=== PATIENT | female | born 1990 | race Caucasian/White ===

== ENCOUNTER 2017-06-04 16:26 | Emergency (ER) | payer MEDICAID ==
[~2017-06-04] VITALS: Ht 167.6 cm; Wt 63.6 kg
[~2017-06-04 16:26] MED LIST: BENZ1TAB10 PO; BUSP15 PO; DIVA500T35 PO; FERR-89 PO; HALO10 PO; LITH300C3 PO; PARO10TA89 PO
[2017-06-04 16:50] VITALS: BP 127/90
== END 2017-06-04 19:30 | disposition left against medical advice (07) ==
LOC: EMS 16:28
DX: Z53.21 Procedure and treatment not carried out due to patient leaving prior to being seen by health care provider (principal)

== ENCOUNTER 2021-07-16 17:03 | Emergency (ER) | payer MEDICAID, OTHER ==
[~2021-07-16] VITALS: Ht 160 cm; Wt 81.8 kg
[~2021-07-16 17:03] MED LIST changes: +DIVA-112 PO; -DIVA500T35 PO
[2021-07-16 18:57] VITALS: BP 104/67
[2021-07-16 19:01] LABS: GLUCOSE,POINT OF CARE 86 MG/DL (70-110)
== END 2021-07-16 21:24 | disposition home or self-care (01) ==
LOC: EMS 17:05
DX: R53.1 Weakness (principal); R42 Dizziness and giddiness; F41.9 Anxiety disorder, unspecified; J45.909 Unspecified asthma, uncomplicated; F31.9 Bipolar disorder, unspecified; I10 Essential (primary) hypertension; F17.210 Nicotine dependence, cigarettes, uncomplicated; F19.90 Other psychoactive substance use, unspecified, uncomplicated; Z88.5 Allergy status to narcotic agent; Z88.6 Allergy status to analgesic agent
CPT/HCPCS: 82962; 99283

== ENCOUNTER 2021-08-15 08:39 | Inpatient (IN) | payer MEDICAID, OTHER ==
[~2021-08-15] VITALS: Ht 162.6 cm; Wt 77.3 kg
[~2021-08-15 08:39] MED LIST changes: -BENZ1TAB10 PO; +BENZ1TAB96 PO
[2021-08-15 12:17] LABS: COVID AG,FIA SOURCE NASAL SWAB
[2021-08-15] MEDS ORDERED: DiphenhydrAMINE HCL 50 MG/ML VIAL IM ONE (12:45)
[2021-08-15] MEDS ORDERED: HALOPERIDOL LACTATE 5 MG/ML VIAL IM ONE (12:45)
[2021-08-15] MEDS ORDERED: LORazepam 2 MG/ML VIAL IM ONE (12:45)
[2021-08-15 12:47] LABS: AMPHET/METH SCREEN,URINE POSITIVE (NEGATIVE); BARBITURATE SCREEN, URINE NEGATIVE (NEGATIVE); BENZODIAZEPINES SCREEN,URINE NEGATIVE (NEGATIVE); CANNABINOID SCREEN,URINE NEGATIVE (NEGATIVE); COCAINE SCREEN,URINE NEGATIVE (NEGATIVE); METHADONE SCREEN, URINE NEGATIVE (NEGATIVE); OPIATE SCREEN,URINE NEGATIVE (NEGATIVE)
[2021-08-15 12:48] LABS: PHENCYCLIDINE SCREEN,URINE NEGATIVE (NEGATIVE)
[2021-08-15] MEDS ORDERED: LORazepam 2 MG TABLET PO PRN (13:45)
[2021-08-15] MEDS ORDERED: HALOPERIDOL 5 MG TABLET PO PRN (13:45)
[2021-08-15] MEDS ORDERED: ZOLPIDEM TARTRATE 10 MG TABLET PO PRN (13:45)
[2021-08-15 17:44] VITALS: BP 117/66
[2021-08-15] MEDS ORDERED: PNEUMOCOCCAL VACCINE POLYVALENT 0.5 ML VIAL [PPSV23] IM. ONE (18:15)
[2021-08-16] MEDS ORDERED: NICOTINE 14 MG/24 HOUR PATCH TD PRN ×2 (06:45→09:00)
[2021-08-16] MEDS ORDERED: GuaiFENesin/D-METHORPHAN [SUGAR-FREE] 200-20MG/10 ML SYRUP UDCUP PO PRN (06:45)
[2021-08-16] MEDS ORDERED: ACETAMINOPHEN 325 MG TABLET PO PRN (06:45)
[2021-08-16] MEDS ORDERED: CloNIDine HCL 0.1 MG TABLET PO PRN (06:45)
[2021-08-16] MEDS ORDERED: ONDANSETRON HCL 4 MG TABLET PO PRN (06:45)
[2021-08-16] MEDS ORDERED: MAG HYDROX/AL HYDROX/SIMETH ES 30 ML SUSPENSION UDCUP PO PRN (06:45)
[2021-08-16] MEDS ORDERED: MAGNESIUM HYDROXIDE SUSPENSION 30 ML UDCUP PO PRN (06:45)
[2021-08-16] MEDS ORDERED: ALBUTEROL SULFATE HFA 90 MCG/PUFF 8 GM INHALER IH PRN (06:45)
[2021-08-16] MEDS ORDERED: PETROLATUM,WHITE 28 GM JELLY TP PRN (06:45)
[2021-08-16] MEDS ORDERED: DOCUSATE SODIUM 100 MG CAPSULE PO PRN (06:45)
[2021-08-16] MEDS ORDERED: LOPERAMIDE HCL 2 MG CAPSULE PO PRN (06:45)
[2021-08-16] MEDS: FERROUS SULFATE 325 MG EC TABLET PO SCH (07:04)
[2021-08-17] MEDS: FERROUS SULFATE 325 MG EC TABLET PO SCH (06:59)
[2021-08-18] MEDS: FERROUS SULFATE 325 MG EC TABLET PO SCH (06:32)
[2021-08-18] MEDS: RisperiDONE 1 MG TABLET PO SCH ×2 (11:30→13:48)
[2021-08-18 16:18] VITALS: BP 125/77
[2021-08-19] MEDS: FERROUS SULFATE 325 MG EC TABLET PO SCH (06:54)
[2021-08-19] MEDS: RisperiDONE 1 MG TABLET PO SCH ×2 (08:54→20:36)
[2021-08-20] MEDS: FERROUS SULFATE 325 MG EC TABLET PO SCH (06:48)
[2021-08-20] MEDS: RisperiDONE 1 MG TABLET PO SCH ×2 (09:22→20:09)
[2021-08-21] MEDS: FERROUS SULFATE 325 MG EC TABLET PO SCH (06:33)
[2021-08-21] MEDS: RisperiDONE 1 MG TABLET PO SCH ×2 (08:07→20:13)
[2021-08-21 16:07] LABS: COVID AG,FIA SOURCE NASOPHARYNGEAL
[2021-08-22] MEDS: FERROUS SULFATE 325 MG EC TABLET PO SCH (06:52)
[2021-08-22] MEDS: RisperiDONE 1 MG TABLET PO SCH ×2 (09:09→20:13)
[2021-08-23] MEDS: FERROUS SULFATE 325 MG EC TABLET PO SCH (06:52)
[2021-08-23] MEDS: RisperiDONE 1 MG TABLET PO SCH ×2 (09:00→16:08)
[2021-08-24] MEDS: FERROUS SULFATE 325 MG EC TABLET PO SCH (06:39)
[2021-08-24] MEDS: RisperiDONE 1 MG TABLET PO SCH ×2 (09:00→16:19)
[2021-08-24 16:18] VITALS: BP 106/62
[2021-08-25] MEDS: FERROUS SULFATE 325 MG EC TABLET PO SCH (06:47)
[2021-08-25 08:21] VITALS: BP 95/54
[2021-08-25] MEDS: RisperiDONE 1 MG TABLET PO SCH ×2 (09:28→16:27)
[2021-08-26] MEDS: FERROUS SULFATE 325 MG EC TABLET PO SCH (06:32)
[2021-08-26] MEDS: RisperiDONE 1 MG TABLET PO SCH ×2 (09:30→16:11)
[2021-08-26 16:45] VITALS: BP 106/60
[2021-08-27] MEDS: FERROUS SULFATE 325 MG EC TABLET PO SCH (06:47)
[2021-08-27 08:00] VITALS: BP 106/60
[2021-08-27] MEDS: RisperiDONE 1 MG TABLET PO SCH ×2 (10:56→16:18)
[2021-08-28] MEDS: FERROUS SULFATE 325 MG EC TABLET PO SCH (07:03)
[2021-08-28] MEDS: RisperiDONE 1 MG TABLET PO SCH ×2 (09:00→17:28)
[2021-08-28 14:27] LABS: COVID AG,FIA SOURCE NASOPHARYNGEAL
[2021-08-29] MEDS: FERROUS SULFATE 325 MG EC TABLET PO SCH (06:47)
[2021-08-29 08:26] VITALS: BP 99/60
[2021-08-29] MEDS: RisperiDONE 1 MG TABLET PO SCH ×2 (10:01→17:02)
[2021-08-29 16:10] VITALS: BP 108/68
[2021-08-29 20:12] VITALS: BP 137/94
[2021-08-30] MEDS: FERROUS SULFATE 325 MG EC TABLET PO SCH (06:53)
[2021-08-30 08:32] VITALS: BP 120/76
[2021-08-30] MEDS: RisperiDONE 1 MG TABLET PO SCH (08:41)
[2021-08-30] MEDS ORDERED: RISP1TAB98 PO (10:59)
[2021-08-30] MEDS ORDERED: FERR-89 PO (13:09)
== END 2021-08-30 15:10 | disposition left against medical advice (07) | DRG 750 ==
LOC: EMS 08:53 → 3EC 15:57
PROVIDERS: ADMIT Psychiatry & Neurology Child & Adolescent Psychiatry; ATTEND Psychiatry & Neurology Child & Adolescent Psychiatry
DX: F20.0 Paranoid schizophrenia (principal); Z59.00 Homelessness unspecified; D64.9 Anemia, unspecified; F10.10 Alcohol abuse, uncomplicated; F15.10 Other stimulant abuse, uncomplicated; I10 Essential (primary) hypertension; J45.909 Unspecified asthma, uncomplicated; Z20.822 Contact with and (suspected) exposure to COVID-19; Y90.9 Presence of alcohol in blood, level not specified; Z91.19 Patient's noncompliance with other medical treatment and regimen; Z87.891 Personal history of nicotine dependence
CPT/HCPCS: 87081; 97110; 97116; 97162; 97166; 97535; 99285; J1200; J1630; J2060

== ENCOUNTER 2021-10-04 08:06 | Inpatient (IN) | payer MEDICAID, OTHER ==
[~2021-10-04] VITALS: Ht 162.6 cm; Wt 65.9 kg
[~2021-10-04 08:06] MED LIST changes: -FERR-89 PO; +FERR325T27 PO; +RISP1TAB98 PO
[2021-10-04] MEDS ORDERED: LORazepam 2 MG/ML VIAL IM ONE (08:15)
[2021-10-04] MEDS ORDERED: DiphenhydrAMINE HCL 50 MG/ML VIAL IM ONE (08:15)
[2021-10-04] MEDS ORDERED: HALOPERIDOL LACTATE 5 MG/ML VIAL IM ONE (08:15)
[2021-10-04 09:22] LABS: BASOPHILS % (AUTO) 1.4 % (0.0-2.0); EOSINOPHILS % (AUTO) 0.7 % (1.0-6.0); HEMATOCRIT 36.8 % (36-46); LYMPHOCYTES # (AUTO) 0.8 K/uL (1.0-4.8); LYMPHOCYTES % (AUTO) 27.7 % (22.0-44.0); MEAN CORPUSCULAR HEMOGLOBIN 23.8 pg (26.0-34.0); MEAN CORPUSCULAR HGB CONC 32.5 G/dL (31.0-37.0); MEAN CORPUSCULAR VOLUME 73 fL (80-100); MONOCYTES # (AUTO) 0.6 K/uL (0.1-1.0); MONOCYTES % (AUTO) 19.8 % (2.0-9.0); NEUTROPHILS # (AUTO) 1.5 K/uL (1.8-7.7); NEUTROPHILS % (AUTO) 50.4 % (40.0-70.0); PLATELET COUNT (AUTO) 291 K/uL (150-450); RED BLOOD CELL COUNT(AUTO) 5.03 MIL/uL (4.00-5.20); RED CELL DISTRIBUTION WIDTH 19.2 % (11.5-14.5)
[2021-10-04 09:33] LABS: ANION GAP 13 mmol/L (8-16); CALCIUM, TOTAL 9.1 mg/dL (8.8-10.5); CARBON DIOXIDE 21 mmol/L (22-29); CHLORIDE 103 mmol/L (98-107); CREATININE 0.47 mg/dL (0.60-1.30); GLUCOSE,RANDOM 73 mg/dL (70-110); POTASSIUM 3.4 mmol/L (3.5-5.1); SODIUM SERUM 137 mmol/L (136-145); UREA NITROGEN, BLOOD 15 mg/dL (7-18)
[2021-10-04 09:34] LABS: GLOMERULAR FILTR. RATE CALC > 60 mL/min (>60)
[2021-10-04 09:44] LABS: ALANINE AMINOTRANSFERASE 25 U/L (12-78); ALBUMIN 3.7 g/dL (3.4-5.0); ALKALINE PHOSPHATASE 73 U/L (46-116); ASPARTATE AMINOTRANSFERASE 22 U/L (15-37); BILIRUBIN,TOTAL 0.6 mg/dL (0.1-1.0); HCG,QUANTITATIVE < 1 mIU/mL (0-6); TOTAL PROTEIN, SERUM 8.1 g/dL (6.4-8.2)
[2021-10-04 09:55] LABS: COVID AG,FIA SOURCE NASOPHARYNGEAL
[2021-10-04] MEDS ORDERED: ZOLPIDEM TARTRATE 10 MG TABLET PO PRN (11:30)
[2021-10-04] MEDS ORDERED: HALOPERIDOL 5 MG TABLET PO PRN (11:30)
[2021-10-04] MEDS ORDERED: PNEUMOCOCCAL VACCINE POLYVALENT 0.5 ML VIAL [PPSV23] IM. ONE (22:30)
[2021-10-05 08:14] VITALS: BP 116/71
[2021-10-05] MEDS: RisperiDONE 2 MG TABLET PO SCH ×2 (09:00→20:40)
[2021-10-05] MEDS: DIVALPROEX SODIUM 500 MG DR TABLET PO SCH ×2 (09:00→20:40)
[2021-10-05] MEDS ORDERED: BENZOCAINE/MENTHOL LOZENGE PO PRN (17:45)
[2021-10-05] MEDS ORDERED: BACITRACIN 28 GM OINTMENT TP PRN (17:45)
[2021-10-05] MEDS ORDERED: CloNIDine HCL 0.1 MG TABLET PO PRN (17:45)
[2021-10-05] MEDS ORDERED: PETROLATUM,WHITE 28 GM JELLY TP PRN (17:45)
[2021-10-05] MEDS ORDERED: MAG HYDROX/AL HYDROX/SIMETH ES 30 ML SUSPENSION UDCUP PO PRN (17:45)
[2021-10-05] MEDS ORDERED: ALBUTEROL SULFATE HFA 90 MCG/PUFF 8 GM INHALER IH PRN (17:45)
[2021-10-05] MEDS ORDERED: POTASSIUM CHLORIDE 20 MEQ ER TABLET PO ONE (17:45)
[2021-10-05] MEDS ORDERED: DOCUSATE SODIUM 100 MG CAPSULE PO PRN (17:45)
[2021-10-05] MEDS ORDERED: LOPERAMIDE HCL 2 MG CAPSULE PO PRN (17:45)
[2021-10-05] MEDS ORDERED: ACETAMINOPHEN 325 MG TABLET PO PRN (17:45)
[2021-10-05] MEDS ORDERED: ONDANSETRON HCL 4 MG TABLET PO PRN (17:45)
[2021-10-05] MEDS ORDERED: OMEPRAZOLE 20 MG CAPSULE PO PRN (17:45)
[2021-10-05] MEDS ORDERED: MAGNESIUM HYDROXIDE SUSPENSION 30 ML UDCUP PO PRN (17:45)
[2021-10-06 01:04] VITALS: BP 112/75
[2021-10-06] MEDS: FERROUS SULFATE 325 MG EC TABLET PO SCH (06:48)
[2021-10-06] MEDS: DIVALPROEX SODIUM 500 MG DR TABLET PO SCH ×2 (08:40→20:13)
[2021-10-06] MEDS: RisperiDONE 2 MG TABLET PO SCH ×2 (08:40→20:13)
[2021-10-06] MEDS: LORazepam 2 MG TABLET PO PRN (18:27)
[2021-10-07 00:58] VITALS: BP 116/72
[2021-10-07] MEDS: FERROUS SULFATE 325 MG EC TABLET PO SCH (06:23)
[2021-10-07] MEDS: RisperiDONE 2 MG TABLET PO SCH ×2 (08:59→20:36)
[2021-10-07] MEDS: DIVALPROEX SODIUM 500 MG DR TABLET PO SCH ×2 (08:59→20:36)
[2021-10-08] MEDS: FERROUS SULFATE 325 MG EC TABLET PO SCH ×3 (06:23→07:00)
[2021-10-08 07:53] VITALS: BP 116/72
[2021-10-08] MEDS: DIVALPROEX SODIUM 500 MG DR TABLET PO SCH ×2 (08:57→20:21)
[2021-10-08] MEDS: RisperiDONE 2 MG TABLET PO SCH ×2 (08:58→20:21)
[2021-10-08 10:17] VITALS: BP 121/68
[2021-10-08 16:31] VITALS: BP 109/67
[2021-10-09] MEDS: FERROUS SULFATE 325 MG EC TABLET PO SCH ×2 (05:58→07:00)
[2021-10-09] MEDS: RisperiDONE 2 MG TABLET PO SCH ×2 (08:05→20:29)
[2021-10-09] MEDS: DIVALPROEX SODIUM 500 MG DR TABLET PO SCH ×2 (08:05→20:29)
[2021-10-09 08:20] VITALS: BP 112/73
[2021-10-09] MEDS: LORazepam 2 MG TABLET PO PRN (14:32)
[2021-10-09 16:33] VITALS: BP 108/70
[2021-10-10 01:20] VITALS: BP 102/75
[2021-10-10] MEDS: FERROUS SULFATE 325 MG EC TABLET PO SCH (06:46)
[2021-10-10] MEDS: RisperiDONE 2 MG TABLET PO SCH ×2 (08:08→20:14)
[2021-10-10] MEDS: DIVALPROEX SODIUM 500 MG DR TABLET PO SCH ×2 (08:08→20:14)
[2021-10-10 08:20] VITALS: BP 116/73
[2021-10-10 16:19] VITALS: BP 106/74
[2021-10-10] MEDS: LORazepam 2 MG TABLET PO PRN (18:48)
[2021-10-11 01:04] VITALS: BP 101/70
[2021-10-11] MEDS: FERROUS SULFATE 325 MG EC TABLET PO SCH (06:39)
[2021-10-11] MEDS: DIVALPROEX SODIUM 500 MG DR TABLET PO SCH ×2 (08:14→21:00)
[2021-10-11] MEDS: RisperiDONE 2 MG TABLET PO SCH ×2 (08:14→21:00)
[2021-10-11 08:35] VITALS: BP 101/59
[2021-10-11 10:50] VITALS: BP 108/72
[2021-10-11] MEDS: LORazepam 2 MG TABLET PO PRN (10:57)
[2021-10-11 16:34] VITALS: BP 110/72
[2021-10-12 00:14] VITALS: BP 108/72
[2021-10-12] MEDS: FERROUS SULFATE 325 MG EC TABLET PO SCH (06:52)
[2021-10-12 08:10] VITALS: BP 102/65
[2021-10-12] MEDS: DIVALPROEX SODIUM 500 MG DR TABLET PO SCH ×2 (08:14→09:16)
[2021-10-12] MEDS: RisperiDONE 2 MG TABLET PO SCH ×2 (08:14→09:16)
[2021-10-12] MEDS ORDERED: DIVA-112 PO (13:02)
[2021-10-12 14:30] VITALS: BP 128/74
[2021-10-12 16:21] LABS: GLUCOMETER DEV NAME(LOC) POC.BV
== END 2021-10-12 15:41 | disposition home or self-care (01) | DRG 750 ==
LOC: EMS 08:06 → B3A 12:21
PROVIDERS: ADMIT Psychiatry & Neurology Psychiatry; ATTEND Psychiatry & Neurology Psychiatry
DX: F25.0 Schizoaffective disorder, bipolar type (principal); E87.6 Hypokalemia; F17.210 Nicotine dependence, cigarettes, uncomplicated; J45.909 Unspecified asthma, uncomplicated; Z20.822 Contact with and (suspected) exposure to COVID-19; F19.10 Other psychoactive substance abuse, uncomplicated; K59.00 Constipation, unspecified; F41.9 Anxiety disorder, unspecified; G47.00 Insomnia, unspecified; Z56.0 Unemployment, unspecified
CPT/HCPCS: 80053; 80164; 84702; 85025; 99285; G0480; J1200; J1630; J2060

== ENCOUNTER 2021-10-15 07:11 | Inpatient (IN) | payer MEDICAID, OTHER ==
[~2021-10-15] VITALS: Ht 160 cm; Wt 78.9 kg
[~2021-10-15 07:11] MED LIST changes: -BENZ1TAB96 PO; -BUSP15 PO; -FERR325T27 PO; -HALO10 PO; -LITH300C3 PO; -PARO10TA89 PO
[2021-10-15] MEDS ORDERED: ACETAMINOPHEN 500 MG TABLET PO ONE (08:30)
[2021-10-15 08:38] LABS: AMPHET/METH SCREEN,URINE NEGATIVE (NEGATIVE); BARBITURATE SCREEN, URINE NEGATIVE (NEGATIVE); BENZODIAZEPINES SCREEN,URINE NEGATIVE (NEGATIVE); CANNABINOID SCREEN,URINE NEGATIVE (NEGATIVE); COCAINE SCREEN,URINE NEGATIVE (NEGATIVE); METHADONE SCREEN, URINE NEGATIVE (NEGATIVE); OPIATE SCREEN,URINE NEGATIVE (NEGATIVE)
[2021-10-15 08:39] LABS: PHENCYCLIDINE SCREEN,URINE NEGATIVE (NEGATIVE)
[2021-10-15 08:42] LABS: BASOPHILS % (AUTO) 0.8 % (0.0-2.0); EOSINOPHILS % (AUTO) 0.5 % (1.0-6.0); HEMATOCRIT 35.1 % (36-46); LYMPHOCYTES # (AUTO) 0.9 K/uL (1.0-4.8); LYMPHOCYTES % (AUTO) 33.6 % (22.0-44.0); MEAN CORPUSCULAR HEMOGLOBIN 23.2 pg (26.0-34.0); MEAN CORPUSCULAR HGB CONC 31.3 G/dL (31.0-37.0); MEAN CORPUSCULAR VOLUME 74 fL (80-100); MONOCYTES # (AUTO) 0.4 K/uL (0.1-1.0); MONOCYTES % (AUTO) 15.3 % (2.0-9.0); NEUTROPHILS # (AUTO) 1.3 K/uL (1.8-7.7); NEUTROPHILS % (AUTO) 49.8 % (40.0-70.0); PLATELET COUNT (AUTO) 277 K/uL (150-450); RED BLOOD CELL COUNT(AUTO) 4.74 MIL/uL (4.00-5.20); RED CELL DISTRIBUTION WIDTH 18.5 % (11.5-14.5)
[2021-10-15 08:53] LABS: ANION GAP 3 mmol/L (8-16); CARBON DIOXIDE 28 mmol/L (22-29); CHLORIDE 107 mmol/L (98-107); CREATININE 0.43 mg/dL (0.60-1.30); GLUCOSE,RANDOM 101 mg/dL (70-110); POTASSIUM 4.2 mmol/L (3.5-5.1); SODIUM SERUM 138 mmol/L (136-145); UREA NITROGEN, BLOOD 10 mg/dL (7-18)
[2021-10-15 08:55] LABS: GLOMERULAR FILTR. RATE CALC > 60 mL/min (>60)
[2021-10-15 11:43] LABS: COVID AG,FIA SOURCE NASAL SWAB
[2021-10-15] MEDS ORDERED: QUET25TA PO (17:02)
[2021-10-15] MEDS: LORazepam 2 MG TABLET PO PRN (17:33)
[2021-10-15] MEDS ORDERED: RISP2TAB45 PO (18:16)
[2021-10-15] MEDS ORDERED: PNEUMOCOCCAL VACCINE POLYVALENT 0.5 ML VIAL [PPSV23] IM. ONE (18:30)
[2021-10-15] MEDS ORDERED: ALBUTEROL SULFATE HFA 90 MCG/PUFF 8 GM INHALER IH PRN (19:15)
[2021-10-15] MEDS ORDERED: BENZOCAINE/MENTHOL LOZENGE PO PRN (19:15)
[2021-10-15] MEDS ORDERED: CloNIDine HCL 0.1 MG TABLET PO PRN (19:15)
[2021-10-15] MEDS ORDERED: MAGNESIUM HYDROXIDE SUSPENSION 30 ML UDCUP PO PRN (19:15)
[2021-10-15] MEDS ORDERED: LOPERAMIDE HCL 2 MG CAPSULE PO PRN (19:15)
[2021-10-15] MEDS ORDERED: MAG HYDROX/AL HYDROX/SIMETH ES 30 ML SUSPENSION UDCUP PO PRN (19:15)
[2021-10-15] MEDS ORDERED: ONDANSETRON HCL 4 MG TABLET PO PRN (19:15)
[2021-10-15] MEDS ORDERED: DOCUSATE SODIUM 100 MG CAPSULE PO PRN (19:15)
[2021-10-15] MEDS ORDERED: PETROLATUM,WHITE 28 GM JELLY TP PRN (19:15)
[2021-10-15] MEDS ORDERED: OMEPRAZOLE 20 MG CAPSULE PO PRN (19:15)
[2021-10-15] MEDS ORDERED: BACITRACIN 28 GM OINTMENT TP PRN (19:15)
[2021-10-15 19:16] VITALS: BP 129/81
[2021-10-15] MEDS: ZOLPIDEM TARTRATE 10 MG TABLET PO PRN (20:14)
[2021-10-16] MEDS: LORazepam 2 MG TABLET PO PRN ×4 (00:03→18:51)
[2021-10-16 03:05] VITALS: BP 116/70
[2021-10-16 08:11] VITALS: BP 121/81
[2021-10-16 08:23] LABS: APPEARANCE,URINE CLEAR (CLEAR); BILIRUBIN,URINE NEGATIVE (NEGATIVE); GLUCOSE, URINE (UA) NEGATIVE (NEGATIVE); KETONES,URINE NEGATIVE (NEGATIVE); LEUKOCYTE ESTERASE ,URINE NEGATIVE (NEGATIVE); NITRATE,URINE NEGATIVE (NEGATIVE); OCCULT BLOOD,URINE NEGATIVE (NEGATIVE); PH,URINE 6.5 (5.0-8.0); PROTEIN,URINE NEGATIVE (NEGATIVE); SPECIFIC GRAVITIY, URINE 1.017 (1.003-1.030); UROBILINOGEN,URINE <=1.0 mg/dL (<=1.0)
[2021-10-16 16:07] VITALS: BP 108/71
[2021-10-16] MEDS: DIVALPROEX SODIUM 500 MG DR TABLET PO SCH (20:04)
[2021-10-16] MEDS: RisperiDONE 2 MG TABLET PO SCH (20:04)
[2021-10-16] MEDS: ZOLPIDEM TARTRATE 10 MG TABLET PO PRN (20:10)
[2021-10-17 00:37] VITALS: BP 116/76
[2021-10-17] MEDS: LORazepam 2 MG TABLET PO PRN ×2 (07:52→16:28)
[2021-10-17 08:11] VITALS: BP 106/65
[2021-10-17] MEDS: RisperiDONE 2 MG TABLET PO SCH ×2 (08:18→20:00)
[2021-10-17] MEDS: DIVALPROEX SODIUM 500 MG DR TABLET PO SCH ×2 (08:18→20:00)
[2021-10-17 17:14] VITALS: BP 113/72
[2021-10-17] MEDS: ZOLPIDEM TARTRATE 10 MG TABLET PO PRN (20:00)
[2021-10-18 00:49] VITALS: BP 110/78
[2021-10-18] MEDS: RisperiDONE 2 MG TABLET PO SCH ×2 (08:13→20:01)
[2021-10-18] MEDS: DIVALPROEX SODIUM 500 MG DR TABLET PO SCH ×2 (08:13→20:01)
[2021-10-18 08:19] VITALS: BP 111/71
[2021-10-18] MEDS: LORazepam 2 MG TABLET PO PRN (10:47)
[2021-10-18 19:43] VITALS: BP 102/70
[2021-10-18] MEDS: ZOLPIDEM TARTRATE 10 MG TABLET PO PRN (20:01)
[2021-10-19 07:01] VITALS: BP 109/70
[2021-10-19] MEDS: RisperiDONE 2 MG TABLET PO SCH ×2 (08:14→20:01)
[2021-10-19] MEDS: DIVALPROEX SODIUM 500 MG DR TABLET PO SCH ×2 (08:14→20:01)
[2021-10-19 08:18] VITALS: BP 105/73
[2021-10-19] MEDS: LORazepam 2 MG TABLET PO PRN ×2 (12:10→18:08)
[2021-10-19] MEDS: HALOPERIDOL 5 MG TABLET PO PRN (12:58)
[2021-10-19 16:42] VITALS: BP 105/61
[2021-10-19] MEDS: ZOLPIDEM TARTRATE 10 MG TABLET PO PRN (20:01)
[2021-10-20 00:46] VITALS: BP 100/68
[2021-10-20 05:31] VITALS: BP 103/60
[2021-10-20 08:05] VITALS: BP 107/64
[2021-10-20] MEDS: RisperiDONE 2 MG TABLET PO SCH ×2 (09:46→20:01)
[2021-10-20] MEDS: DIVALPROEX SODIUM 500 MG DR TABLET PO SCH ×2 (09:46→20:01)
[2021-10-20] MEDS: LORazepam 2 MG TABLET PO PRN ×3 (10:32→20:55)
[2021-10-20 16:38] VITALS: BP 110/66
[2021-10-20] MEDS: ZOLPIDEM TARTRATE 10 MG TABLET PO PRN (20:01)
[2021-10-21 04:37] VITALS: BP 112/67
[2021-10-21] MEDS: RisperiDONE 2 MG TABLET PO SCH ×2 (08:21→20:03)
[2021-10-21] MEDS: DIVALPROEX SODIUM 500 MG DR TABLET PO SCH ×2 (08:21→20:03)
[2021-10-21 08:37] VITALS: BP 98/60
[2021-10-21] MEDS: LORazepam 2 MG TABLET PO PRN (10:31)
[2021-10-21] MEDS: HALOPERIDOL 5 MG TABLET PO PRN (11:30)
[2021-10-21 16:21] VITALS: BP 108/56
[2021-10-21] MEDS: ZOLPIDEM TARTRATE 10 MG TABLET PO PRN (20:03)
[2021-10-22 00:10] VITALS: BP 101/63
[2021-10-22 07:16] LABS: HEMATOCRIT 34.3 % (36-46); HEMOGLOBIN 10.8 g/dL (12.0-16.0); MEAN CORPUSCULAR HGB CONC 31.6 G/dL (31.0-37.0); MEAN CORPUSCULAR VOLUME 73 fL (80-100); PLATELET COUNT (AUTO) 275 K/uL (150-450); RED BLOOD CELL COUNT(AUTO) 4.72 MIL/uL (4.00-5.20); RED CELL DISTRIBUTION WIDTH 17.6 % (11.5-14.5)
[2021-10-22 07:33] LABS: HEMOGLOBIN A1C 5.4 % (3.8-5.6)
[2021-10-22 07:39] LABS: ALANINE AMINOTRANSFERASE 26 U/L (12-78); ALBUMIN 3.1 g/dL (3.4-5.0); ALKALINE PHOSPHATASE 62 U/L (46-116); ANION GAP 7 mmol/L (8-16); ASPARTATE AMINOTRANSFERASE 18 U/L (15-37); BILIRUBIN,TOTAL 0.2 mg/dL (0.1-1.0); CARBON DIOXIDE 28 mmol/L (22-29); CHLORIDE 104 mmol/L (98-107); CREATININE 0.39 mg/dL (0.60-1.30); GLOMERULAR FILTR. RATE CALC > 60 mL/min (>60); GLUCOSE,RANDOM 88 mg/dL (70-110); SODIUM SERUM 139 mmol/L (136-145); THYROID STIMULATING HORMONE 3.32 uIU/mL (0.36-3.74); UREA NITROGEN, BLOOD 8 mg/dL (7-18)
[2021-10-22 07:42] LABS: BAND NEUTROPHILS % (MANUAL) 1 % (0-5); LYMPHOCYTES % (MANUAL) 58 % (22-44); MONOCYTES % (MANUAL) 8 % (2-9); SEGMENTED NEUTROPHILS % 33 % (40-70)
[2021-10-22 08:08] VITALS: BP 105/64
[2021-10-22] MEDS: RisperiDONE 2 MG TABLET PO SCH ×2 (09:00→20:01)
[2021-10-22] MEDS: DIVALPROEX SODIUM 500 MG DR TABLET PO SCH ×2 (09:00→20:01)
[2021-10-22] MEDS: LORazepam 2 MG TABLET PO PRN (12:37)
[2021-10-22 16:16] VITALS: BP 108/72
[2021-10-22] MEDS: ZOLPIDEM TARTRATE 10 MG TABLET PO PRN (20:34)
[2021-10-23 00:21] VITALS: BP 102/66
[2021-10-23] MEDS: DIVALPROEX SODIUM 500 MG DR TABLET PO SCH ×2 (08:23→20:03)
[2021-10-23] MEDS: RisperiDONE 2 MG TABLET PO SCH ×2 (08:23→20:03)
[2021-10-23 08:36] VITALS: BP 98/64
[2021-10-23 10:30] VITALS: BP 109/70
[2021-10-23] MEDS: NICOTINE 21 MG/24 HOUR PATCH TD PRN (14:17)
[2021-10-23] MEDS: LORazepam 2 MG TABLET PO PRN (16:24)
[2021-10-23 16:33] VITALS: BP 105/67
[2021-10-23] MEDS: ZOLPIDEM TARTRATE 10 MG TABLET PO PRN (20:03)
[2021-10-24 00:18] VITALS: BP 100/72
[2021-10-24] MEDS: DIVALPROEX SODIUM 500 MG DR TABLET PO SCH ×2 (08:14→20:21)
[2021-10-24] MEDS: RisperiDONE 2 MG TABLET PO SCH ×2 (08:14→20:21)
[2021-10-24] MEDS: NICOTINE 21 MG/24 HOUR PATCH TD PRN (08:16)
[2021-10-24 08:33] VITALS: BP 100/60
[2021-10-24 10:13] VITALS: BP 113/77
[2021-10-24] MEDS: LORazepam 2 MG TABLET PO PRN (10:14)
[2021-10-24 16:13] VITALS: BP 110/67
[2021-10-24] MEDS: ZOLPIDEM TARTRATE 10 MG TABLET PO PRN (20:21)
[2021-10-25 06:14] VITALS: BP 132/72
[2021-10-25 08:07] VITALS: BP 118/77
[2021-10-25] MEDS: DIVALPROEX SODIUM 500 MG DR TABLET PO SCH ×2 (08:36→21:28)
[2021-10-25] MEDS: RisperiDONE 2 MG TABLET PO SCH ×2 (08:36→21:28)
[2021-10-25] MEDS: LORazepam 2 MG TABLET PO PRN ×2 (10:52→23:48)
[2021-10-25 17:18] VITALS: BP 116/80
[2021-10-25] MEDS: NICOTINE 21 MG/24 HOUR PATCH TD PRN (18:19)
[2021-10-25] MEDS: ZOLPIDEM TARTRATE 10 MG TABLET PO PRN (21:28)
[2021-10-25] MEDS: HALOPERIDOL 5 MG TABLET PO PRN (22:57)
[2021-10-26 00:56] VITALS: BP 110/76
[2021-10-26 08:12] VITALS: BP 105/65
[2021-10-26] MEDS: RisperiDONE 2 MG TABLET PO SCH ×2 (08:28→20:11)
[2021-10-26] MEDS: DIVALPROEX SODIUM 500 MG DR TABLET PO SCH ×2 (08:28→20:11)
[2021-10-26 08:31] LABS: GLUCOMETER DEV NAME(LOC) POC.BV
[2021-10-26] MEDS: NICOTINE 21 MG/24 HOUR PATCH TD PRN (11:05)
[2021-10-26 16:16] VITALS: BP 108/74
[2021-10-26] MEDS: ZOLPIDEM TARTRATE 10 MG TABLET PO PRN (22:17)
[2021-10-27] MEDS: RisperiDONE 2 MG TABLET PO SCH ×2 (08:05→20:43)
[2021-10-27] MEDS: DIVALPROEX SODIUM 500 MG DR TABLET PO SCH ×2 (08:05→20:43)
[2021-10-27 08:12] VITALS: BP 105/63
[2021-10-27] MEDS: NICOTINE 21 MG/24 HOUR PATCH TD PRN (12:50)
[2021-10-27] MEDS: LORazepam 2 MG TABLET PO PRN ×2 (13:51→19:03)
[2021-10-27 17:41] VITALS: BP 114/60
[2021-10-27] MEDS: HALOPERIDOL 5 MG TABLET PO PRN (19:03)
[2021-10-27] MEDS: ZOLPIDEM TARTRATE 10 MG TABLET PO PRN (21:08)
[2021-10-28 00:18] VITALS: BP 112/68
[2021-10-28] MEDS: RisperiDONE 2 MG TABLET PO SCH ×2 (08:39→20:33)
[2021-10-28] MEDS: DIVALPROEX SODIUM 500 MG DR TABLET PO SCH ×2 (08:39→20:33)
[2021-10-28 11:43] VITALS: BP 120/76
[2021-10-28] MEDS: LORazepam 2 MG TABLET PO PRN ×2 (13:41→18:42)
[2021-10-28] MEDS: NICOTINE 21 MG/24 HOUR PATCH TD PRN (13:41)
[2021-10-28 16:21] VITALS: BP 112/70
[2021-10-28] MEDS: ZOLPIDEM TARTRATE 10 MG TABLET PO PRN (20:33)
[2021-10-28] MEDS: HALOPERIDOL 5 MG TABLET PO PRN (22:14)
[2021-10-29 06:33] VITALS: BP 116/72
[2021-10-29 08:47] VITALS: BP 102/66
[2021-10-29] MEDS: DIVALPROEX SODIUM 500 MG DR TABLET PO SCH ×2 (09:04→20:31)
[2021-10-29] MEDS: RisperiDONE 2 MG TABLET PO SCH ×2 (09:04→20:31)
[2021-10-29] MEDS: NICOTINE 21 MG/24 HOUR PATCH TD PRN (12:43)
[2021-10-29] MEDS: LORazepam 2 MG TABLET PO PRN ×2 (12:57→20:47)
[2021-10-29 16:23] VITALS: BP 100/63
[2021-10-29] MEDS: ZOLPIDEM TARTRATE 10 MG TABLET PO PRN (22:12)
[2021-10-30 06:31] VITALS: BP 105/60
[2021-10-30] MEDS: RisperiDONE 2 MG TABLET PO SCH ×2 (08:02→20:15)
[2021-10-30] MEDS: DIVALPROEX SODIUM 500 MG DR TABLET PO SCH ×2 (08:02→20:15)
[2021-10-30 08:17] VITALS: BP 100/65
[2021-10-30] MEDS: LORazepam 2 MG TABLET PO PRN ×2 (14:13→22:26)
[2021-10-30] MEDS: HALOPERIDOL 5 MG TABLET PO PRN (14:54)
[2021-10-30 16:18] VITALS: BP 122/80
[2021-10-30] MEDS: ZOLPIDEM TARTRATE 10 MG TABLET PO PRN (20:15)
[2021-10-30] MEDS: NICOTINE 21 MG/24 HOUR PATCH TD PRN (22:13)
[2021-10-31 01:08] VITALS: BP 116/77
[2021-10-31] MEDS: RisperiDONE 2 MG TABLET PO SCH ×2 (07:49→20:06)
[2021-10-31] MEDS: DIVALPROEX SODIUM 500 MG DR TABLET PO SCH ×2 (07:49→20:06)
[2021-10-31 08:03] VITALS: BP 113/66
[2021-10-31] MEDS: LORazepam 2 MG TABLET PO PRN ×2 (12:09→20:06)
[2021-10-31 16:28] VITALS: BP 113/73
[2021-10-31] MEDS: HALOPERIDOL 5 MG TABLET PO PRN (17:07)
[2021-10-31] MEDS: ZOLPIDEM TARTRATE 10 MG TABLET PO PRN (22:37)
[2021-11-01 01:15] VITALS: BP 110/68
[2021-11-01 08:07] VITALS: BP 100/59
[2021-11-01] MEDS: RisperiDONE 2 MG TABLET PO SCH ×2 (08:09→20:03)
[2021-11-01] MEDS: DIVALPROEX SODIUM 500 MG DR TABLET PO SCH ×2 (08:09→20:03)
[2021-11-01] MEDS: NICOTINE 21 MG/24 HOUR PATCH TD PRN (12:38)
[2021-11-01 13:15] VITALS: BP 108/70
[2021-11-01] MEDS: LORazepam 2 MG TABLET PO PRN ×2 (13:20→23:23)
[2021-11-01 16:15] VITALS: BP 107/71
[2021-11-01] MEDS: ZOLPIDEM TARTRATE 10 MG TABLET PO PRN (22:21)
[2021-11-02 05:51] VITALS: BP 110/73
[2021-11-02] MEDS: DIVALPROEX SODIUM 500 MG DR TABLET PO SCH ×2 (08:11→20:22)
[2021-11-02] MEDS: RisperiDONE 2 MG TABLET PO SCH ×2 (08:11→20:22)
[2021-11-02 08:14] VITALS: BP 102/66
[2021-11-02] MEDS: NICOTINE 21 MG/24 HOUR PATCH TD PRN (11:37)
[2021-11-02 16:11] VITALS: BP 108/77
[2021-11-02] MEDS: LORazepam 2 MG TABLET PO PRN (21:25)
[2021-11-02] MEDS: ZOLPIDEM TARTRATE 10 MG TABLET PO PRN (21:51)
[2021-11-03 06:05] VITALS: BP 104/61
[2021-11-03] MEDS: RisperiDONE 2 MG TABLET PO SCH ×2 (08:06→20:13)
[2021-11-03] MEDS: ACETAMINOPHEN 325 MG TABLET PO PRN (08:06)
[2021-11-03] MEDS: DIVALPROEX SODIUM 500 MG DR TABLET PO SCH ×2 (08:06→20:13)
[2021-11-03] MEDS: LORazepam 2 MG TABLET PO PRN ×2 (08:06→22:09)
[2021-11-03 08:12] VITALS: BP 110/63
[2021-11-03] MEDS: NICOTINE 21 MG/24 HOUR PATCH TD PRN (13:52)
[2021-11-03 16:02] VITALS: BP 115/78
[2021-11-03] MEDS: ZOLPIDEM TARTRATE 10 MG TABLET PO PRN (20:13)
[2021-11-04] MEDS: HALOPERIDOL 5 MG TABLET PO PRN ×2 (00:11→17:05)
[2021-11-04 00:12] VITALS: BP 118/83
[2021-11-04] MEDS: RisperiDONE 2 MG TABLET PO SCH ×2 (08:05→20:31)
[2021-11-04] MEDS: DIVALPROEX SODIUM 500 MG DR TABLET PO SCH ×2 (08:05→20:30)
[2021-11-04 08:10] VITALS: BP 100/62
[2021-11-04 10:26] LABS: GLUCOMETER DEV NAME(LOC) POC.BV
[2021-11-04] MEDS: NICOTINE 21 MG/24 HOUR PATCH TD PRN (16:19)
[2021-11-04 16:23] VITALS: BP 115/78
[2021-11-04] MEDS: LORazepam 2 MG TABLET PO PRN (18:43)
[2021-11-04] MEDS: ZOLPIDEM TARTRATE 10 MG TABLET PO PRN (21:12)
[2021-11-05 05:27] VITALS: BP 106/66
[2021-11-05] MEDS: NICOTINE 21 MG/24 HOUR PATCH TD PRN (08:17)
[2021-11-05] MEDS: DIVALPROEX SODIUM 500 MG DR TABLET PO SCH ×2 (08:17→20:21)
[2021-11-05] MEDS: RisperiDONE 2 MG TABLET PO SCH ×2 (08:17→20:21)
[2021-11-05 08:38] VITALS: BP 138/94
[2021-11-05 16:10] VITALS: BP 104/71
[2021-11-05 18:25] VITALS: BP 116/80
[2021-11-05] MEDS: ACETAMINOPHEN 325 MG TABLET PO PRN (18:25)
[2021-11-05] MEDS: LORazepam 2 MG TABLET PO PRN (20:26)
[2021-11-05] MEDS: ZOLPIDEM TARTRATE 10 MG TABLET PO PRN (21:06)
[2021-11-05] MEDS: HALOPERIDOL 5 MG TABLET PO PRN (22:42)
[2021-11-06 05:38] VITALS: BP 105/59
[2021-11-06 08:20] VITALS: BP 100/63
[2021-11-06] MEDS: DIVALPROEX SODIUM 500 MG DR TABLET PO SCH ×2 (08:44→20:09)
[2021-11-06] MEDS: RisperiDONE 2 MG TABLET PO SCH ×2 (08:44→20:09)
[2021-11-06 10:46] LABS: GLUCOMETER DEV NAME(LOC) POC.BV
[2021-11-06] MEDS: NICOTINE 21 MG/24 HOUR PATCH TD PRN (12:12)
[2021-11-06 12:31] VITALS: BP 103/73
[2021-11-06] MEDS: LORazepam 2 MG TABLET PO PRN ×2 (12:31→21:45)
[2021-11-06] MEDS ORDERED: DICLOFENAC SODIUM 1% 100 GM GEL [2GM] TP PRN (13:45)
[2021-11-06 16:12] VITALS: BP 102/69
[2021-11-06] MEDS: ZOLPIDEM TARTRATE 10 MG TABLET PO PRN (21:45)
[2021-11-07 00:54] VITALS: BP 100/63
[2021-11-07] MEDS: DIVALPROEX SODIUM 500 MG DR TABLET PO SCH ×2 (08:14→20:21)
[2021-11-07] MEDS: RisperiDONE 2 MG TABLET PO SCH ×2 (08:14→20:21)
[2021-11-07 08:19] VITALS: BP 100/60
[2021-11-07] MEDS: LORazepam 2 MG TABLET PO PRN ×2 (12:41→20:53)
[2021-11-07 16:21] VITALS: BP 108/74
[2021-11-07] MEDS: NICOTINE 21 MG/24 HOUR PATCH TD PRN (17:10)
[2021-11-07] MEDS: ZOLPIDEM TARTRATE 10 MG TABLET PO PRN (20:32)
[2021-11-07 20:53] VITALS: BP 115/78
[2021-11-08 03:17] VITALS: BP 106/72
[2021-11-08] MEDS: DIVALPROEX SODIUM 500 MG DR TABLET PO SCH (08:04)
[2021-11-08] MEDS: RisperiDONE 2 MG TABLET PO SCH (08:04)
[2021-11-08 08:05] VITALS: BP 105/67
== END 2021-11-08 13:41 | disposition home or self-care (01) | DRG 750 ==
LOC: EMS 07:11 → B3A 14:06
PROVIDERS: ADMIT Psychiatry & Neurology Psychiatry; ATTEND Psychiatry & Neurology Psychiatry
DX: F25.9 Schizoaffective disorder, unspecified (principal); R45.851 Suicidal ideations; Z59.00 Homelessness unspecified; F10.10 Alcohol abuse, uncomplicated; F15.10 Other stimulant abuse, uncomplicated; F41.0 Panic disorder [episodic paroxysmal anxiety]; J45.909 Unspecified asthma, uncomplicated; Z20.822 Contact with and (suspected) exposure to COVID-19; G47.00 Insomnia, unspecified; K59.00 Constipation, unspecified; F12.10 Cannabis abuse, uncomplicated; Y90.9 Presence of alcohol in blood, level not specified; Z87.891 Personal history of nicotine dependence; Z91.14 Patient's other noncompliance with medication regimen; Z88.6 Allergy status to analgesic agent; Z88.5 Allergy status to narcotic agent; Z28.21 Immunization not carried out because of patient refusal
CPT/HCPCS: 80048; 80053; 80164; 81003; 83036; 83735; 84100; 84443; 84703; 85025; 87081; G0480

== ENCOUNTER 2021-11-08 19:30 | Emergency (ER) | payer MEDICAID, OTHER ==
[~2021-11-08] VITALS: Ht 160 cm; Wt 78.9 kg
[~2021-11-08 19:30] MED LIST changes: +QUET25TA PO; -RISP1TAB98 PO; +RISP2TAB45 PO
[2021-11-08 20:21] LABS: APPEARANCE,URINE CLEAR (CLEAR); BILIRUBIN,URINE NEGATIVE (NEGATIVE); GLUCOSE, URINE (UA) NEGATIVE (NEGATIVE); KETONES,URINE NEGATIVE (NEGATIVE); LEUKOCYTE ESTERASE ,URINE SMALL (NEGATIVE); NITRATE,URINE NEGATIVE (NEGATIVE); OCCULT BLOOD,URINE LARGE (NEGATIVE); PH,URINE 5.5 (5.0-8.0); PROTEIN,URINE TRACE mg/dL (NEGATIVE); SPECIFIC GRAVITIY, URINE 1.011 (1.003-1.030); UROBILINOGEN,URINE <=1.0 mg/dL (<=1.0)
[2021-11-08 20:27] LABS: EOSINOPHILS % (AUTO) 0.4 % (1.0-6.0); HEMATOCRIT 31.5 % (36-46); HEMOGLOBIN 10.1 g/dL (12.0-16.0); LYMPHOCYTES # (AUTO) 1.2 K/uL (1.0-4.8); LYMPHOCYTES % (AUTO) 26.1 % (22.0-44.0); MEAN CORPUSCULAR HEMOGLOBIN 22.9 pg (26.0-34.0); MEAN CORPUSCULAR HGB CONC 31.9 G/dL (31.0-37.0); MEAN CORPUSCULAR VOLUME 72 fL (80-100); MONOCYTES # (AUTO) 0.8 K/uL (0.1-1.0); MONOCYTES % (AUTO) 16.7 % (2.0-9.0); NEUTROPHILS # (AUTO) 2.6 K/uL (1.8-7.7); NEUTROPHILS % (AUTO) 55.8 % (40.0-70.0); PLATELET COUNT (AUTO) 293 K/uL (150-450); RED BLOOD CELL COUNT(AUTO) 4.39 MIL/uL (4.00-5.20); RED CELL DISTRIBUTION WIDTH 17.3 % (11.5-14.5)
[2021-11-08 20:28] LABS: AMPHET/METH SCREEN,URINE NEGATIVE (NEGATIVE); BARBITURATE SCREEN, URINE NEGATIVE (NEGATIVE); BENZODIAZEPINES SCREEN,URINE NEGATIVE (NEGATIVE); CANNABINOID SCREEN,URINE POSITIVE (NEGATIVE); COCAINE SCREEN,URINE NEGATIVE (NEGATIVE); METHADONE SCREEN, URINE NEGATIVE (NEGATIVE); OPIATE SCREEN,URINE NEGATIVE (NEGATIVE)
[2021-11-08 20:31] LABS: BACTERIA,URINE None Seen /HPF (None Seen); RBC,URINE 26-50 /HPF (0-2)
[2021-11-08 20:45] LABS: PHENCYCLIDINE SCREEN,URINE NEGATIVE (NEGATIVE)
[2021-11-08 20:46] LABS: ANION GAP 9 mmol/L (8-16); CALCIUM, TOTAL 8.4 mg/dL (8.8-10.5); CARBON DIOXIDE 27 mmol/L (22-29); CHLORIDE 101 mmol/L (98-107); CREATININE 0.49 mg/dL (0.60-1.30); GLOMERULAR FILTR. RATE CALC > 60 mL/min (>60); GLUCOSE,RANDOM 132 mg/dL (70-110); POTASSIUM 3.8 mmol/L (3.5-5.1); SODIUM SERUM 137 mmol/L (136-145); UREA NITROGEN, BLOOD 15 mg/dL (7-18)
[2021-11-08 20:54] LABS: ALANINE AMINOTRANSFERASE 21 U/L (12-78); ALBUMIN 3.4 g/dL (3.4-5.0); ALKALINE PHOSPHATASE 62 U/L (46-116); ASPARTATE AMINOTRANSFERASE 13 U/L (15-37); HCG,QUANTITATIVE < 1 mIU/mL (0-6); TOTAL PROTEIN, SERUM 7.2 g/dL (6.4-8.2); VALPROIC ACID 67 mcg/mL (50-100)
[2021-11-08 21:15] LABS: BILIRUBIN,TOTAL 0.1 mg/dL (0.1-1.0)
[2021-11-08 21:40] VITALS: BP 114/64
== END 2021-11-08 21:45 | disposition home or self-care (01) ==
LOC: EMS 19:58
DX: F25.0 Schizoaffective disorder, bipolar type (principal); F12.929 Cannabis use, unspecified with intoxication, unspecified; J45.909 Unspecified asthma, uncomplicated; F12.90 Cannabis use, unspecified, uncomplicated; F15.90 Other stimulant use, unspecified, uncomplicated; F17.210 Nicotine dependence, cigarettes, uncomplicated; Z88.5 Allergy status to narcotic agent; Z88.6 Allergy status to analgesic agent; Z79.899 Other long term (current) drug therapy
CPT/HCPCS: 80053; 80164; 81001; 84702; 85025; 99283

== ENCOUNTER 2021-11-20 19:42 | Emergency (ER) | payer OTHER ==
[~2021-11-20] VITALS: Ht 160 cm; Wt 78.9 kg
[~2021-11-20 19:42] MED LIST changes: -QUET25TA PO
[2021-11-20 22:05] VITALS: BP 124/71
== END 2021-11-20 23:34 | disposition home or self-care (01) ==
LOC: EMS 19:42
DX: F25.0 Schizoaffective disorder, bipolar type (principal); F15.10 Other stimulant abuse, uncomplicated; F41.9 Anxiety disorder, unspecified; J45.909 Unspecified asthma, uncomplicated; F31.9 Bipolar disorder, unspecified; F17.210 Nicotine dependence, cigarettes, uncomplicated; F12.90 Cannabis use, unspecified, uncomplicated; Z86.2 Personal history of diseases of the blood and blood-forming organs and certain disorders involving the immune mechanism; Z86.59 Personal history of other mental and behavioral disorders; Z98.890 Other specified postprocedural states; Z88.5 Allergy status to narcotic agent; Z88.8 Allergy status to other drugs, medicaments and biological substances
CPT/HCPCS: 99283

== ENCOUNTER 2024-08-27 09:32 | Emergency (ER) | payer OTHER ==
[~2024-08-27] VITALS: Ht 162.6 cm; Wt 81.8 kg
[2024-08-27 09:35] VITALS: TEMP 98.5
[2024-08-27] MEDS ORDERED: FERR-72 PO (09:38)
[2024-08-27] MEDS ORDERED: MECL-302 PO (09:38)
[2024-08-27 09:54] LABS: BASOPHILS % (AUTO) 4.1 % (0.0-2.0); EOSINOPHILS % (AUTO) 1.2 % (1.0-6.0); LYMPHOCYTES % (AUTO) 46.4 % (22.0-44.0); MEAN CORPUSCULAR HEMOGLOBIN 23.2 pg (26.0-34.0); MEAN CORPUSCULAR HGB CONC 31.4 G/dL (31.0-37.0); MEAN CORPUSCULAR VOLUME 74 fL (80-100); MONOCYTES # (AUTO) 0.4 K/uL (0.1-1.0); NEUTROPHILS # (AUTO) 0.7 K/uL (1.8-7.7); NEUTROPHILS % (AUTO) 31.3 % (40.0-70.0); PLATELET COUNT (AUTO) 199 K/uL (150-450); RED BLOOD CELL COUNT(AUTO) 4.74 MIL/uL (4.00-5.20); RED CELL DISTRIBUTION WIDTH 15.4 % (11.5-14.5); WHITE BLOOD COUNT (AUTO) 2.2 K/uL (4.5-11.0)
[2024-08-27 09:57] LABS: APPEARANCE,URINE HAZY (CLEAR); BILIRUBIN,URINE NEGATIVE (NEGATIVE); COLOR,URINE LIGHT YELLOW (YELLOW); GLUCOSE, URINE (UA) NEGATIVE (NEGATIVE); KETONES,URINE NEGATIVE (NEGATIVE); LEUKOCYTE ESTERASE ,URINE SMALL (NEGATIVE); NITRATE,URINE NEGATIVE (NEGATIVE); OCCULT BLOOD,URINE NEGATIVE (NEGATIVE); PH,URINE 5.5 (5.0-8.0); PROTEIN,URINE TRACE mg/dL (NEGATIVE); SPECIFIC GRAVITIY, URINE 1.014 (1.003-1.030); UROBILINOGEN,URINE <=1.0 mg/dL (<=1.0)
[2024-08-27 10:01] LABS: RBC,URINE None Seen /HPF (0-2)
[2024-08-27 10:02] LABS: BACTERIA,URINE Few /HPF (None Seen); SQUAMOUS EPITHELIAL CELL,UR Many /LPF (None Seen)
[2024-08-27 10:06] LABS: ANION GAP 5 mmol/L (8-16); CALCIUM, TOTAL 8.4 mg/dL (8.8-10.5); CARBON DIOXIDE 27 mmol/L (22-29); CHLORIDE 106 mmol/L (98-107); CREATININE 0.31 mg/dL (0.60-1.30); GLOMERULAR FILTR. RATE CALC > 60 mL/min (>60); GLUCOSE,RANDOM 91 mg/dL (70-110); POTASSIUM 3.9 mmol/L (3.5-5.1); SODIUM SERUM 138 mmol/L (136-145); UREA NITROGEN, BLOOD 6 mg/dL (7-18)
[2024-08-27 10:10] LABS: RBC MORPHOLOGY COMMENT ABNORMAL RBC MORPH
[2024-08-27 10:17] LABS: TROPONIN I-HIGH SENSITIVITY Less Than 4 ng/L (<51)
[2024-08-27 11:25] VITALS: BP 118/65; PULSE 77; RESP 18; O2SAT 98
[2024-08-27] MEDS ORDERED: PREN-64 PO (11:35)
== END 2024-08-27 11:56 | disposition home or self-care (01) ==
LOC: EMS 09:38
DX: R53.1 Weakness (principal); D50.9 Iron deficiency anemia, unspecified; R50.9 Fever, unspecified; R11.0 Nausea; F12.90 Cannabis use, unspecified, uncomplicated; F17.210 Nicotine dependence, cigarettes, uncomplicated; F20.9 Schizophrenia, unspecified; J45.909 Unspecified asthma, uncomplicated; Z88.5 Allergy status to narcotic agent; Z88.6 Allergy status to analgesic agent
CPT/HCPCS: 80048; 81001; 84484; 85025; 99283

== ENCOUNTER 2024-09-10 11:05 | Inpatient (IN) | payer MEDICAID ==
[~2024-09-10] VITALS: Ht 162.6 cm; Wt 80.7 kg
[~2024-09-10 11:05] MED LIST changes: -DIVA-112 PO; +FERR-72 PO; +MECL-302 PO; +PREN-64 PO; -RISP2TAB45 PO
[2024-09-10] MEDS ORDERED: HALOPERIDOL 5 MG TABLET PO PRN (13:30)
[2024-09-10 14:15] LABS: GLUCOMETER DEV NAME(LOC) POC.BV; POC SARS-COV2 AG, FIA NEGATIVE (NEGATIVE)
[2024-09-10 17:11] VITALS: BP 115/69; PULSE 75; RESP 17; TEMP 97.9; O2SAT 100
[2024-09-10] MEDS ORDERED: MAGNESIUM HYDROXIDE SUSPENSION 30 ML UDCUP PO PRN (20:30)
[2024-09-10] MEDS ORDERED: PETROLATUM,WHITE 28 GM JELLY TP PRN (20:30)
[2024-09-10] MEDS ORDERED: MAG HYDROX/ALUMINUM HYD/SIMETH ES 30 ML SUSPENSION UDCUP PO PRN (20:30)
[2024-09-10] MEDS ORDERED: GuaiFENesin/D-METHORPHAN [SUGAR-FREE] 200-20MG/10 ML SYRUP UDCUP PO PRN (20:30)
[2024-09-10] MEDS ORDERED: ALBUTEROL SULFATE HFA 90 MCG/PUFF 8 GM INHALER IH PRN (20:30)
[2024-09-10] MEDS ORDERED: CloNIDine HCL 0.1 MG TABLET PO PRN (20:30)
[2024-09-10] MEDS ORDERED: NICOTINE 14 MG/24 HOUR PATCH TD PRN (20:30)
[2024-09-10] MEDS ORDERED: ACETAMINOPHEN 325 MG TABLET PO PRN (20:30)
[2024-09-10] MEDS ORDERED: DOCUSATE SODIUM 100 MG CAPSULE PO PRN (20:30)
[2024-09-10] MEDS ORDERED: ONDANSETRON 4 MG TABLET PO PRN (20:30)
[2024-09-10] MEDS ORDERED: LOPERAMIDE HCL 2 MG CAPSULE PO PRN (20:30)
[2024-09-10 21:07] VITALS: BP 128/62; PULSE 76; RESP 16; TEMP 97.7; O2SAT 95
[2024-09-11] MEDS ORDERED: BUSP10TA3 PO (09:00)
[2024-09-11] MEDS ORDERED: LURA40TA4 PO (09:00)
[2024-09-11] MEDS: BusPIRone HCL 10 MG TABLET PO SCH (09:37)
[2024-09-11 16:55] VITALS: BP 109/67; PULSE 78; RESP 16; TEMP 97.8; O2SAT 100
[2024-09-11] MEDS: LURASIDONE HCL 40 MG TABLET PO SCH (17:10)
[2024-09-12 08:31] LABS: HEMOGLOBIN A1C 5.3 % (3.8-5.6)
[2024-09-12 08:35] VITALS: BP 95/58; PULSE 69; RESP 16; TEMP 97.9; O2SAT 97
[2024-09-12 08:36] VITALS: BP 108/63; RESP 16; O2SAT 98
[2024-09-12] MEDS: FERROUS SULFATE 325 MG EC TABLET PO SCH (08:36)
[2024-09-12] MEDS: LORazepam 2 MG TABLET PO PRN (08:36)
[2024-09-12 08:46] LABS: CHOL/HDL RATIO 4.1 (3.9-5.7); FREE T4 (FREE THYROXINE) 0.99 ng/dL (0.76-1.46); THYROID STIMULATING HORMONE 2.81 uIU/mL (0.36-3.74)
[2024-09-12 20:22] VITALS: BP 112/55; PULSE 82; RESP 16; TEMP 97.6; O2SAT 97
[2024-09-13 08:28] LABS: BILIRUBIN,URINE NEGATIVE (NEGATIVE); GLUCOSE, URINE (UA) NEGATIVE (NEGATIVE); KETONES,URINE TRACE mg/dL (NEGATIVE); LEUKOCYTE ESTERASE ,URINE NEGATIVE (NEGATIVE); NITRATE,URINE NEGATIVE (NEGATIVE); OCCULT BLOOD,URINE LARGE (NEGATIVE); PROTEIN,URINE 100-200,SEE CONFIRM mg/dL (NEGATIVE); SPECIFIC GRAVITIY, URINE 1.025 (1.003-1.030); UROBILINOGEN,URINE <=1.0 mg/dL (<=1.0)
[2024-09-13 08:31] LABS: APPEARANCE,URINE BLOODY (CLEAR)
[2024-09-13 08:32] LABS: COLOR,URINE RED (YELLOW)
[2024-09-13 08:35] VITALS: BP 124/79; PULSE 82; RESP 18; TEMP 98; O2SAT 98
[2024-09-13 08:36] LABS: ALCOHOL, URINE DRUG SCREEN NEGATIVE (NEGATIVE); AMPHET/METH SCREEN,URINE NEGATIVE (NEGATIVE); BARBITURATE SCREEN, URINE NEGATIVE (NEGATIVE); BENZODIAZEPINES SCREEN,URINE NEGATIVE (NEGATIVE); CANNABINOID SCREEN,URINE NEGATIVE (NEGATIVE); COCAINE SCREEN,URINE NEGATIVE (NEGATIVE); METHADONE SCREEN, URINE NEGATIVE (NEGATIVE); OPIATE SCREEN,URINE NEGATIVE (NEGATIVE); PHENCYCLIDINE SCREEN,URINE NEGATIVE (NEGATIVE)
[2024-09-13 08:49] LABS: BACTERIA,URINE None Seen /HPF (None Seen); RBC,URINE Full Field /HPF (0-2); SULFOSALICYLIC ACID,URINE 2+ (Negative); WBC,URINE None Seen /HPF (0-5)
[2024-09-14 08:24] VITALS: BP 110/65; PULSE 79; RESP 16; TEMP 98.2; O2SAT 99
[2024-09-14] MEDS ORDERED: LURA40TA2 PO (18:44)
[2024-09-14] MEDS ORDERED: FERR325T27 PO (18:44)
[2024-09-14] MEDS ORDERED: BUSP10TA23 PO (18:44)
[2024-09-14] MEDS: ZOLPIDEM TARTRATE 10 MG TABLET PO PRN (22:12)
[2024-09-14 23:10] VITALS: RESP 18
[2024-09-15 09:45] VITALS: BP 101/56; PULSE 73; RESP 16; TEMP 96.8; O2SAT 97
== END 2024-09-15 13:37 | disposition home or self-care (01) | DRG 750 ==
LOC: B2S 13:18 → B3A 21:46
PROVIDERS: ADMIT Psychiatry & Neurology Psychiatry; ATTEND Psychiatry & Neurology Psychiatry
PROC: GZHZZZZ Group Psychotherapy (ICD-10-PCS; principal; 2024-09-11)
PROC: GZ52ZZZ Individual Psychotherapy, Cognitive (ICD-10-PCS; 2024-09-11)
DX: F25.1 Schizoaffective disorder, depressive type (principal); R45.851 Suicidal ideations; F41.9 Anxiety disorder, unspecified; I10 Essential (primary) hypertension; J45.909 Unspecified asthma, uncomplicated; Z20.822 Contact with and (suspected) exposure to COVID-19; Z79.899 Other long term (current) drug therapy; Z88.6 Allergy status to analgesic agent; Z88.5 Allergy status to narcotic agent; Z91.51 Personal history of suicidal behavior
CPT/HCPCS: 80061; 80307; 81001; 81002; 83036; 84439; 84443; 84702

== ENCOUNTER 2024-12-07 07:24 | Emergency (ER) | payer MEDICAID, OTHER ==
[~2024-12-07] VITALS: Ht 160 cm; Wt 77.0 kg
[~2024-12-07 07:24] MED LIST changes: +BUSP10TA23 PO; -FERR-72 PO; +FERR325T27 PO; +LURA40TA2 PO; -MECL-302 PO; -PREN-64 PO
[2024-12-07 07:35] VITALS: BP 108/73; PULSE 83; RESP 18; TEMP 97.9; O2SAT 99
[2024-12-07 08:02] LABS: PLATELET COUNT (AUTO) 222 K/uL (150-450); RED BLOOD CELL COUNT(AUTO) 4.84 MIL/uL (4.00-5.20); RED CELL DISTRIBUTION WIDTH 18.1 % (11.5-14.5); WHITE BLOOD COUNT (AUTO) 2.6 K/uL (4.5-11.0)
[2024-12-07 08:03] LABS: RBC MORPHOLOGY COMMENT ABNORMAL RBC MORPH
[2024-12-07 08:08] LABS: COVID AG,FIA SOURCE NASAL SWAB
[2024-12-07 08:13] LABS: CALCIUM, TOTAL 8.3 mg/dL (8.8-10.5); CREATININE 0.48 mg/dL (0.60-1.30); GLOMERULAR FILTR. RATE CALC > 60 mL/min (>60); GLUCOSE,RANDOM 109 mg/dL (70-110); SODIUM SERUM 140 mmol/L (136-145); UREA NITROGEN, BLOOD 7 mg/dL (7-18)
[2024-12-07 08:31] LABS: PH,URINE DRUG SCREEN 5.5 (5.0-8.0)
[2024-12-07 08:35] LABS: ALCOHOL, URINE DRUG SCREEN NEGATIVE (NEGATIVE); AMPHET/METH SCREEN,URINE NEGATIVE (NEGATIVE); BARBITURATE SCREEN, URINE NEGATIVE (NEGATIVE); CANNABINOID SCREEN,URINE NEGATIVE (NEGATIVE); COCAINE SCREEN,URINE NEGATIVE (NEGATIVE); METHADONE SCREEN, URINE NEGATIVE (NEGATIVE)
[2024-12-07 08:46] LABS: SARS-COV2 (COVID) ANTIGEN,FIA Negative (Negative)
== END 2024-12-07 08:59 ==
LOC: EMS 07:29
DX: F41.9 Anxiety disorder, unspecified (principal); J45.909 Unspecified asthma, uncomplicated; F31.9 Bipolar disorder, unspecified; F20.9 Schizophrenia, unspecified; F12.90 Cannabis use, unspecified, uncomplicated; F15.90 Other stimulant use, unspecified, uncomplicated; F17.210 Nicotine dependence, cigarettes, uncomplicated; Z98.890 Other specified postprocedural states; Z88.5 Allergy status to narcotic agent; Z88.6 Allergy status to analgesic agent; Z79.899 Other long term (current) drug therapy; Z20.822 Contact with and (suspected) exposure to COVID-19
CPT/HCPCS: 99285; 87426; 80048; 84703; 85025; 36415; 80307; G0480; 99283

== ENCOUNTER 2025-01-09 17:35 | Emergency (ER) | payer MEDICAID, OTHER ==
[~2025-01-09] VITALS: Ht 160 cm; Wt 77.3 kg
[2025-01-09 17:38] VITALS: BP 112/82; PULSE 88; RESP 22; TEMP 97.9; O2SAT 100
== END 2025-01-09 20:06 | disposition left against medical advice (07) ==
LOC: EMS 17:42
DX: F41.9 Anxiety disorder, unspecified (principal); Z53.21 Procedure and treatment not carried out due to patient leaving prior to being seen by health care provider
CPT/HCPCS: 93005

== ENCOUNTER → 2025-01-09 | Emergency (ER) | payer OTHER ==
[~2025-01-09] VITALS: Ht 160 cm; Wt 77.0 kg
[2025-01-09 23:24] VITALS: BP 133/76; PULSE 89; RESP 15; TEMP 98.3; O2SAT 98
== END | disposition still patient (30) ==
LOC: EMS 23:14
DX: Z00.8 Encounter for other general examination (principal); Z53.21 Procedure and treatment not carried out due to patient leaving prior to being seen by health care provider

== ENCOUNTER 2025-01-21 03:39 | Emergency (ER) | payer OTHER ==
[~2025-01-21] VITALS: Ht 157.5 cm; Wt 59.1 kg
[2025-01-21 03:47] VITALS: TEMP 98
[2025-01-21 03:59] VITALS: BP 98/64; PULSE 76; RESP 16; O2SAT 100
== END 2025-01-21 05:15 | disposition left against medical advice (07) ==
LOC: EMS 03:41
DX: R07.89 Other chest pain (principal); R00.2 Palpitations; F20.9 Schizophrenia, unspecified; F41.9 Anxiety disorder, unspecified; J45.909 Unspecified asthma, uncomplicated; F31.9 Bipolar disorder, unspecified; F17.210 Nicotine dependence, cigarettes, uncomplicated; F15.90 Other stimulant use, unspecified, uncomplicated; F12.90 Cannabis use, unspecified, uncomplicated; Z88.5 Allergy status to narcotic agent; Z88.6 Allergy status to analgesic agent; Z79.899 Other long term (current) drug therapy
CPT/HCPCS: 71045; 93005; 99283

== ENCOUNTER 2025-01-21 12:52 | Emergency (ER) | payer OTHER ==
[~2025-01-21] VITALS: Ht 160 cm; Wt 76.2 kg
[2025-01-21 13:39] VITALS: BP 101/74; PULSE 76; RESP 14; TEMP 97.9; O2SAT 99
[2025-01-21 14:20] LABS: COVID AG,FIA SOURCE NASAL SWAB
[2025-01-21 14:20] LABS: PLATELET COUNT (AUTO) 198 K/uL (150-450); RED BLOOD CELL COUNT(AUTO) 4.96 MIL/uL (4.00-5.20); RED CELL DISTRIBUTION WIDTH 18.9 % (11.5-14.5); WHITE BLOOD COUNT (AUTO) 3.3 K/uL (4.5-11.0)
[2025-01-21 14:25] LABS: CALCIUM, TOTAL 8.4 mg/dL (8.8-10.5); CREATININE 0.59 mg/dL (0.60-1.30); GLOMERULAR FILTR. RATE CALC > 60 mL/min (>60); GLUCOSE,RANDOM 98 mg/dL (70-110); SODIUM SERUM 139 mmol/L (136-145); UREA NITROGEN, BLOOD 9 mg/dL (7-18)
[2025-01-21 14:59] LABS: RBC MORPHOLOGY COMMENT ABNORMAL RBC MORPH
[2025-01-21 15:03] LABS: SARS-COV2 (COVID) ANTIGEN,FIA Negative (Negative)
== END 2025-01-21 14:40 | disposition home or self-care (01) ==
LOC: EMS 13:39
DX: F41.9 Anxiety disorder, unspecified (principal); J45.909 Unspecified asthma, uncomplicated; F31.9 Bipolar disorder, unspecified; F25.9 Schizoaffective disorder, unspecified; F12.90 Cannabis use, unspecified, uncomplicated; F15.90 Other stimulant use, unspecified, uncomplicated; F17.210 Nicotine dependence, cigarettes, uncomplicated; Z88.6 Allergy status to analgesic agent; Z88.5 Allergy status to narcotic agent; Z20.822 Contact with and (suspected) exposure to COVID-19; Z79.899 Other long term (current) drug therapy
CPT/HCPCS: 99284; 87426; 80048; 84703; 85025; 36415; 93005; G0480

== ENCOUNTER 2025-01-27 16:17 | Inpatient (IN) | payer MEDICAID, OTHER ==
[~2025-01-27] VITALS: Ht 160 cm; Wt 75.1 kg
[2025-01-27 17:40] LABS: GLUCOMETER DEV NAME(LOC) POC.BV; POC SARS-COV2 AG, FIA NEGATIVE (NEGATIVE)
[2025-01-27 20:50] VITALS: BP 103/75; PULSE 58; RESP 16; TEMP 97.3; O2SAT 99
[2025-01-27] MEDS: ZOLPIDEM TARTRATE 10 MG TABLET PO PRN (22:39)
[2025-01-27] MEDS ORDERED: MAGNESIUM HYDROXIDE SUSPENSION 30 ML UDCUP PO PRN (22:45)
[2025-01-27] MEDS ORDERED: ACETAMINOPHEN 325 MG TABLET PO PRN (22:45)
[2025-01-27] MEDS ORDERED: DOCUSATE SODIUM 100 MG CAPSULE PO PRN (22:45)
[2025-01-27] MEDS ORDERED: MAG HYDROX/ALUMINUM HYD/SIMETH ES 30 ML SUSPENSION UDCUP PO PRN (22:45)
[2025-01-27] MEDS ORDERED: PETROLATUM,WHITE 28 GM JELLY TP PRN (22:45)
[2025-01-27] MEDS ORDERED: BENZOCAINE/MENTHOL [CEPACOL] LOZENGE PO PRN (22:45)
[2025-01-27] MEDS ORDERED: LOPERAMIDE HCL 2 MG CAPSULE PO PRN (22:45)
[2025-01-27] MEDS ORDERED: ALBUTEROL SULFATE HFA 90 MCG/PUFF 8 GM INHALER IH PRN (22:45)
[2025-01-27] MEDS ORDERED: ONDANSETRON 4 MG TABLET PO PRN (22:45)
[2025-01-27] MEDS ORDERED: OMEPRAZOLE 20 MG CAPSULE PO PRN (22:45)
[2025-01-27] MEDS ORDERED: BACITRACIN 28 GM OINTMENT TP PRN (22:45)
[2025-01-28 08:32] VITALS: BP 133/117; PULSE 84; RESP 16; TEMP 97.6; O2SAT 97
[2025-01-28] MEDS: FERROUS SULFATE 325 MG EC TABLET PO SCH (09:09)
[2025-01-28 09:51] LABS: PLATELET COUNT (AUTO) 245 K/uL (150-450); RED BLOOD CELL COUNT(AUTO) 4.84 MIL/uL (4.00-5.20); RED CELL DISTRIBUTION WIDTH 18.9 % (11.5-14.5); WHITE BLOOD COUNT (AUTO) 1.9 K/uL (4.5-11.0)
[2025-01-28 10:14] LABS: PLATELET MORPHOLOGY COMMENT LARGE PLTS PRESENT
[2025-01-28 10:15] LABS: PATHOLOGY REVIEW, DIFF YES; RBC MORPHOLOGY COMMENT ABNORMAL RBC MORPH
[2025-01-28 10:17] LABS: BAND NEUTROPHILS % (MANUAL) 0 % (0-5)
[2025-01-28 10:22] LABS: BASOPHILS % (MANUAL) 1 % (0-2); EOSINOPHILS % (MANUAL) 2 % (1-6); LYMPHOCYTES % (MANUAL) 37 % (22-44); MONOCYTES % (MANUAL) 10 % (2-9); SEGMENTED NEUTROPHILS % 50 % (40-70)
[2025-01-28 10:36] LABS: ALCOHOL, BLOOD (SERUM) < 3 mg/dL (0-10)
[2025-01-28 10:51] LABS: ASPARTATE AMINOTRANSFERASE 13 U/L (15-37); CALCIUM, TOTAL 8.4 mg/dL (8.8-10.5); CHOL/HDL RATIO 4.5 (3.9-5.7); CREATININE 0.41 mg/dL (0.60-1.30); GLOMERULAR FILTR. RATE CALC > 60 mL/min (>60); GLUCOSE,RANDOM 123 mg/dL (70-110); HCG,QUANTITATIVE 1 mIU/mL (0-6); LDL CHOL (CALC.) 94 mg/dL (0-130); SODIUM SERUM 139 mmol/L (136-145); TOTAL PROTEIN, SERUM 7.2 g/dL (6.4-8.2); UREA NITROGEN, BLOOD 11 mg/dL (7-18)
[2025-01-28] MEDS: DIVALPROEX SODIUM 500 MG DR TABLET PO SCH (17:39)
[2025-01-28] MEDS: LITHIUM CARBONATE 300 MG CAPSULE PO SCH (17:39)
[2025-01-28 20:39] VITALS: BP 93/53; PULSE 80; RESP 16; TEMP 97.7; O2SAT 99
[2025-01-29 05:08] LABS: HEPATITIS C AB (EIA) Non Reactive (Non Reactive)
[2025-01-29 08:28] VITALS: BP 90/67; PULSE 68; RESP 16; TEMP 97.3; O2SAT 100
[2025-01-29 22:59] VITALS: BP 104/73; PULSE 100; RESP 17; TEMP 97.8; O2SAT 98
[2025-01-30 08:13] VITALS: RESP 16
[2025-01-30 20:15] VITALS: BP 112/75; PULSE 68; RESP 17; TEMP 97.8; O2SAT 99
[2025-01-31 08:26] VITALS: BP 91/66; PULSE 66; RESP 16; TEMP 97.9; O2SAT 99
[2025-01-31 23:41] VITALS: RESP 17
[2025-02-01 08:24] VITALS: BP 112/66; PULSE 79; RESP 16; TEMP 97.6; O2SAT 98
[2025-02-01 09:52] LABS: VALPROIC ACID 36.0 mcg/mL (50-100)
[2025-02-01] MEDS ORDERED: RISP3TAB77 PO (14:36)
[2025-02-01] MEDS ORDERED: LITH300C3 PO (14:36)
[2025-02-01] MEDS ORDERED: DIVA-112 PO (14:37)
[2025-02-01] MEDS ORDERED: FERR325T27 PO (14:39)
== END 2025-02-01 17:20 | disposition home or self-care (01) | DRG 753 ==
LOC: B3A 20:37
PROVIDERS: ADMIT Psychiatry & Neurology Psychiatry; ATTEND Psychiatry & Neurology Psychiatry
DX: F31.9 Bipolar disorder, unspecified (principal); R45.851 Suicidal ideations; Z91.148 Patient's other noncompliance with medication regimen for other reason; F41.9 Anxiety disorder, unspecified; F15.10 Other stimulant abuse, uncomplicated; D50.9 Iron deficiency anemia, unspecified; I10 Essential (primary) hypertension; G47.00 Insomnia, unspecified; K59.00 Constipation, unspecified; J45.909 Unspecified asthma, uncomplicated; Z20.822 Contact with and (suspected) exposure to COVID-19; Z72.0 Tobacco use
CPT/HCPCS: 80053; 80061; 80164; 80178; 83036; 84439; 84443; 84702; 85025; 86803; 87340; G0480